=== PATIENT | female | born 1995 | race African-American/Black ===

== ENCOUNTER 2018-05-29 20:33 | Emergency (ER) | payer OTHER, SELFPAY ==
[2018-05-29] MEDS ORDERED: NA CHLORIDE 0.9% 1,000 ML ONE (21:23)
[2018-05-29] MEDS ORDERED: ONDANSETRON 4 MG/2 ML VIAL ONE (21:23)
[2018-05-29 21:37] LABS: Urine Blood NEGATIVE (NEG); Urine Glucose NEGATIVE (NEG); Urine Protein 2+ (NEG); Urine Specific Gravity 1.025 (1.005-1.030)
[2018-05-29 21:47] LABS: Urine Amorphous Sediment 2+ /HPF (NONE SEEN); Urine Bacteria 20-50 /HPF (<20); Urine Culture Reflex Order REFLEXED; Urine Mucus 2+ /HPF (NONE SEEN); Urine RBC <5 /HPF (NONE SEEN)
[2018-05-29 21:53] LABS: Absolute Lymphocytes (CBC) 2.7 K/uL (0.7-4.9); Absolute Monocytes 0.8 K/uL (0.1-1.3); Absolute Neutrophil 9.5 K/uL (1.8-8.0); Basophils % 0.2 % (0-1.3); Eosinophils % 0.4 % (0-4.4); Hematocrit 41.4 % (36.0-45.0); Lymphocytes % 20.5 % (15.3-44.8); MCH 31.7 pg (27.0-35.0); MCV 90.4 fL (80-100); MPV 9.6 fL (7.6-11.3); RBC Red Blood Cell Count 4.58 M/uL (3.86-4.86)
[2018-05-29] MEDS ORDERED: D5 0.9 NS 1,000 ML IV ONE (21:59)
[2018-05-29 22:13] LABS: ALT/SGPT 18 U/L (12-78); AST/SGOT 15 U/L (15-37); Alkaline Phosphatase 90 U/L (45-117); BUN Blood Urea Nitrogen 9 mg/dL (7-18); Bicarbonate 27 mmol/L (21-32); Bilirubin Direct 0.2 mg/dL (0-0.2); Bilirubin Total 0.5 mg/dL (0.2-1.0); Glucose Level 102 mg/dL (74-106); HCG, Quantitative 92333 mIU/mL (1-3); Lipase 125 U/L (73-393); Potassium 3.1 mmol/L (3.5-5.1); Protein, Total 8.7 g/dL (6.4-8.2); Sodium Level 134 mmol/L (136-145)
--- NOTE | 2018-05-29 22:26 | EDPHYS ---
Physician Documentation [facility] Name: Ayan Turner Age: 22 yrs Sex: Female : 1995 Arrival Date: 05/29/2018 Time: 20:34 Bed 6 Private MD: ED Physician Ramon Hill HPI: 05/29 22:22 This 22 yrs old Black Female presents to ER via Ambulatory with complaints of Vomiting, mariella Fever. 22:22 The patient presents to the emergency department with nausea, vomiting, that is mariella continuous. Onset: The symptoms/episode began/occurred 5 day(s) ago. Possible causes: . The symptoms are aggravated by nothing. The symptoms are alleviated by food . Associated signs and symptoms: The patient has no apparent associated signs or symptoms. Severity of symptoms: At their worst the symptoms were mild in the emergency department the symptoms are unchanged. 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 - Social history:: Smoking status: Patient/guardian denies using tobacco. - Ebola Screening: : No symptoms or risks identified at this time. - Family history:: not pertinent. ROS: 22:22 Constitutional: Negative for fever, chills, and weight loss, Eyes: Negative for injury, mariella pain, redness, and discharge, ENT: Negative for injury, pain, and discharge, Neck: Negative for injury, pain, and swelling, Cardiovascular: Negative for chest pain, palpitations, and edema, Respiratory: Negative for shortness of breath, cough, wheezing, and pleuritic chest pain, Back: Negative for injury and pain, : Negative for injury, bleeding, discharge, and swelling, MS/Extremity: Negative for injury and deformity, Skin: Negative for injury, rash, and discoloration, Neuro: Negative for headache, weakness, numbness, tingling, and seizure, Psych: Negative for depression, anxiety, suicide ideation, homicidal ideation, and hallucinations, Allergy/Immunology: Negative for hives, rash, and allergies, Endocrine: Negative for neck swelling, polydipsia, polyuria, polyphagia, and marked weight changes, Hematologic/Lymphatic: Negative for swollen nodes, abnormal bleeding, and unusual bruising. 22:22 Abdomen/GI: Positive for nausea and vomiting. Exam: 22:22 Constitutional: This is a well developed, well nourished patient who is awake, alert, mariella and in no acute distress. Head/Face: Normocephalic, atraumatic. Eyes: Pupils equal round and reactive to light, extra-ocular motions intact. Lids and lashes normal. Conjunctiva and sclera are non-icteric and not injected. Cornea within normal limits. Periorbital areas with no swelling, redness, or edema. ENT: Nares patent. No nasal discharge, no septal abnormalities noted. Tympanic membranes are normal and external auditory canals are clear. Oropharynx with no redness, swelling, or masses, exudates, or evidence of obstruction, uvula midline. Mucous membranes moist. Neck: Trachea midline, no thyromegaly or masses palpated, and no cervical lymphadenopathy. Supple, full range of motion without nuchal rigidity, or vertebral point tenderness. No Meningismus. Chest/axilla: Normal chest wall appearance and motion. Nontender with no deformity. No lesions are appreciated. Cardiovascular: Regular rate and rhythm with a normal S1 and S2. No gallops, murmurs, or rubs. Normal PMI, no JVD. No pulse deficits. Respiratory: Lungs have equal breath sounds bilaterally, clear to auscultation and percussion. No rales, rhonchi or wheezes noted. No increased work of breathing, no retractions or nasal flaring. Abdomen/GI: Soft, non-tender, with normal bowel sounds. No distension or tympany. No guarding or rebound. No evidence of tenderness throughout. Back: No spinal tenderness. No costovertebral tenderness. Full range of motion. Female : Normal external genitalia. Skin: Warm, dry with normal turgor. Normal color with no rashes, no lesions, and no evidence of cellulitis. MS/ Extremity: Pulses equal, no cyanosis. Neurovascular intact. Full, normal range of motion. Neuro: Awake and alert, GCS 15, oriented to person, place, time, and situation. Cranial nerves II-XII grossly intact. Motor strength 5/5 in all extremities. Sensory grossly intact. Cerebellar exam normal. Normal gait. Psych: Awake, alert, with orientation to person, place and time. Behavior, mood, and affect are within normal limits. Vital Signs: 20:40 BP 143 / 91; Pulse 115; Resp 16; Temp 98.4(TE); Pulse Ox 100% on R/A; Weight 70.31 kg; la1 Height 5 ft. 3 in. (160.02 cm); 21:37 Pulse 94; Resp 16; Pulse Ox 100% on R/A; ak1 22:20 BP 103 / 92 LA Supine (auto/); Pulse 94; Resp 16; Pulse Ox 100% on R/A; ak1 22:25 BP 119 / 72 LA Sitting (auto/reg); Pulse 100; Resp 16; Pulse Ox 100% on R/A; ak1 22:30 BP 118 / 76 LA Standing (auto/reg); Pulse 102; Resp 16; Pulse Ox 100% ; ak1 20:40 Body Mass Index 27.46 (70.31 kg, 160.02 cm) la1 MDM: 21:10 Patient medically screened. 05/29 21:15 Order name: Basic Metabolic Panel; Complete Time: 22:16 05/29 21:15 Order name: CBC with Diff; Complete Time: 22:16 05/29 21:15 Order name: Creatinine for Radiology; Complete Time: 22:16 05/29 21:15 Order name: Hepatic Function; Complete Time: 22:16 05/29 21:15 Order name: Lipase; Complete Time: 22:16 05/29 21:15 Order name: Urine Microscopic Only; Complete Time: 22:16 05/29 21:15 Order name: HCG-Quantitative; Complete Time: 22:16 05/29 21:15 Order name: TSH; Complete Time: 22:16 05/29 21:34 Order name: Urine Dipstick--Ancillary (enter results); Complete Time: 21:43 mw2 05/29 21:49 Order name: Urine Culture EDMS 05/29 21:15 Order name: IV Saline Lock; Complete Time: 21:35 05/29 21:15 Order name: Labs collected and sent; Complete Time: 21:35 05/29 21:15 Order name: Urine Dipstick-Ancillary (obtain specimen); Complete Time: 21:35 05/29 22:17 Order name: PO challenge: juice; Complete Time: 22:29 mariella Administered Medications: 21:34 Drug: Zofran 4 mg Route: IVP; Site: right antecubital; ak1 21:38 Follow up: Response: No adverse reaction ak1 21:35 Drug: NS 0.9% 1000 ml Route: IV; Rate: 1 bolus; Site: right antecubital; ak1 22:00 Follow up: IV Status: Completed infusion ak1 22:00 Drug: D5-NS 1000 ml Route: IV; Rate: 1 bolus; Site: right antecubital; ak1 22:29 Follow up: IV Status: Completed infusion ak1 22:29 Drug: Potassium Effervescent Tablet 25 mEq Route: PO; ak1 22:30 Follow up: Response: No adverse reaction ak1 22:30 CANCELLED (ERP verbal order to cancel after orthostatics ): NS 0.9% 1000 ml IV at 1 ak1 bolus Per protocol; 1000 mL bolus Disposition: 05/29/18 22:25 Discharged to Home. Impression: Vomiting, related conditions, unspecified, first trimester. - Condition is Stable. - Discharge Instructions: Hyperemesis Gravidarum, Nausea and Vomiting, Adult, Eating Plan for Hyperemesis Gravidarum, First Trimester of , [id number], Nausea and Vomiting, Adult, [id number], First Trimester of . - Prescriptions for Diclegis 10- 10 mg Oral tablet,delayed release (DR/EC) - take 1 tablet by ORAL route 3 times per day and 2 tablets at bedtime; 60 tablet. - Medication Reconciliation Form, Thank You Letter, Antibiotic Education, Prescription Opioid Use form. - Follow up: Private Physician; When: 2 - 3 days; Reason: Recheck today's complaints, Continuance of care, Re-evaluation by your physician. Follow up: Franchesca Ng MD; When: 2 - 3 days; Reason: Recheck today's complaints, Re-evaluation by your physician. - Problem is new. - Symptoms have improved. Signatures: Dispatcher [employer] Ramon Gresham MD MD cha Attema, Lee, RN RN [email or web address] Jamilah Rosa RN RN ak1 Will Costa MD MD gs Corrections: (The following items were deleted from the chart) 22:30 22:18 NS 0.9% 1000 ml IV at 1 bolus Per protocol; 1000 mL bolus ordered. mariella marino 22:54 22:25 05/29/2018 22:25 Discharged to Home. Impression: Vomiting; related ak1 conditions, unspecified, first trimester. Condition is Stable. Forms are Medication Reconciliation Form, Thank You Letter, Antibiotic Education, Prescription Opioid Use. Follow up: Private Physician; When: 2 - 3 days; Reason: Recheck today's complaints, Continuance of care, Re-evaluation by your physician. Follow up: Mini Rekhi; When: 2 - 3 days; Reason: Recheck today's complaints, Re-evaluation by your physician. Problem is new. Symptoms have improved. mariella
--- NOTE | 2018-05-29 22:26 | ER ---
Nurse's Notes [facility] Name: Ayan Turner Age: 22 yrs Sex: Female : 1995 Arrival Date: 05/29/2018 Time: 20:34 Bed 6 Private MD: Diagnosis: Vomiting; related conditions, unspecified, first trimester Presentation: 05/29 20:39 Presenting complaint: Patient states: I have been vomiting for the last 10 days, I cant la1 keep anything down except for crackers. Pt states LMP April 07 but has not taken test, pt denies pain. Transition of care: patient was not received from another setting of care. Onset of symptoms was May 29, 2018. Risk Assessment: Do you want to hurt yourself or someone else? Patient reports no desire to harm self or others. Initial Sepsis Screen: Does the patient meet any 2 criteria? No. Patient's initial sepsis screen is negative. Does the patient have a suspected source of infection? No. Patient's initial sepsis screen is negative. Care prior to arrival: None. 20:39 Method Of Arrival: Ambulatory la1 20:39 Acuity: MOSES 3 la1 Triage Assessment: 20:48 General: Appears in no apparent distress. Behavior is calm, cooperative. Pain: Denies ak1 pain. EENT: No signs and/or symptoms were reported regarding the EENT system. Neuro: No deficits noted. Cardiovascular: No deficits noted. Respiratory: No deficits noted. GI: Reports nausea, vomiting. : No signs and/or symptoms were reported regarding the genitourinary system. Derm: No signs and/or symptoms reported regarding the dermatologic system. Musculoskeletal: No signs and/or symptoms reported regarding the musculoskeletal system. 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 - Social history:: Smoking status: Patient/guardian denies using tobacco. - Ebola Screening: : No symptoms or risks identified at this time. - Family history:: not pertinent. Screenin:48 Abuse screen: Denies threats or abuse. Denies injuries from another. Nutritional ak1 screening: No deficits noted. Tuberculosis screening: No symptoms or risk factors identified. Fall Risk None identified. Assessment: 21:36 Reassessment: Patient appears in no apparent distress at this time. No changes from ak1 previously documented assessment. see triage assessment. GI: Abdomen is flat, non-distended, Reports nausea, vomiting, every morning X10 days. 22:32 Reassessment: Patient appears in no apparent distress at this time. Patient and/or ak1 family updated on plan of care and expected duration. Pain level reassessed. Patient is alert, oriented x 3, equal unlabored respirations, skin warm/dry/pink. pt eating shrimp and rice brought from home. pt tolerating food and the potassium with no vomiting while in the ER. Vital Signs: 20:40 BP 143 / 91; Pulse 115; Resp 16; Temp 98.4(TE); Pulse Ox 100% on R/A; Weight 70.31 kg; la1 Height 5 ft. 3 in. (160.02 cm); 21:37 Pulse 94; Resp 16; Pulse Ox 100% on R/A; ak1 22:20 BP 103 / 92 LA Supine (auto/); Pulse 94; Resp 16; Pulse Ox 100% on R/A; ak1 22:25 BP 119 / 72 LA Sitting (auto/reg); Pulse 100; Resp 16; Pulse Ox 100% on R/A; ak1 22:30 BP 118 / 76 LA Standing (auto/reg); Pulse 102; Resp 16; Pulse Ox 100% ; ak1 20:40 Body Mass Index 27.46 (70.31 kg, 160.02 cm) la1 Vitals: 22:41 Heart Tones 145 bpm. ak1 ED Course: 20:34 Patient arrived in ED. es 20:40 Triage completed. la1 20:41 Arm band placed on right wrist. la1 20:47 Will Costa MD is Attending Physician. gs 20:48 Jamilah Rosa, RN is Primary Nurse. ak1 20:50 Patient has correct armband on for positive identification. ak1 21:35 Urine Dipstick--Ancillary (enter results) Sent. ak1 21:35 No provider procedures requiring assistance completed. Initial lab(s) drawn, by dc, ak1 sent to lab. Urine collected: clean catch specimen, tea colored. Inserted saline lock: 20 gauge in right antecubital area, using aseptic technique. Blood collected. 21:51 Attending Physician role handed off by Will Costa MD [facility] 21:51 Ramon Hill MD is Attending Physician. mariella 21:53 Urine Culture Sent. ak1 22:25 Franchesca Ng MD is Referral Physician. mariella 22:30 IV discontinued, intact, bleeding controlled, No redness/swelling at site. Pressure ak1 dressing applied. Administered Medications: 21:34 Drug: Zofran 4 mg Route: IVP; Site: right antecubital; ak1 21:38 Follow up: Response: No adverse reaction ak1 21:35 Drug: NS 0.9% 1000 ml Route: IV; Rate: 1 bolus; Site: right antecubital; ak1 22:00 Follow up: IV Status: Completed infusion ak1 22:00 Drug: D5-NS 1000 ml Route: IV; Rate: 1 bolus; Site: right antecubital; ak1 22:29 Follow up: IV Status: Completed infusion ak1 22:29 Drug: Potassium Effervescent Tablet 25 mEq Route: PO; ak1 22:30 Follow up: Response: No adverse reaction ak1 22:30 CANCELLED (ERP verbal order to cancel after orthostatics ): NS 0.9% 1000 ml IV at 1 ak1 bolus Per protocol; 1000 mL bolus Outcome: 22:25 Discharge ordered by . mariella 22:32 Condition: stable ak1 22:42 Discharged to home ambulatory, with family. ak1 22:42 Discharge instructions given to patient, Instructed on discharge instructions, follow up and referral plans. no drinking with medication, no driving heavy equipment, medication usage, Demonstrated understanding of instructions, follow-up care, medications, Prescriptions given X 1. 22:54 Patient left the ED. ak1 Signatures: Ramon Hill MD MD cha Salyer, Edna es Attema, Lee RN RN la1 Jamilah Rosa RN RN ak1 Will Costa MD MD
[2018-05-29] MEDS ORDERED: POTASSIUM 25 MEQ EFFERV TAB ONE (22:27)
== END 2018-05-29 22:54 | disposition home or self-care (01) ==
LOC: ER 20:33
DX: O21.9 Vomiting of pregnancy, unspecified (principal); Z3A.00 Weeks of gestation of pregnancy not specified
CPT/HCPCS: 36415; 80048; 80076; 81003; 81015; 83690; 84443; 84702; 85025; 87086; 87088; 96361; 96374; 99284; J2405; J7030

== ENCOUNTER 2018-06-16 16:43 | Emergency (ER) | payer OTHER, SELFPAY ==
[2018-06-16 18:57] LABS: Absolute Lymphocytes (CBC) 1.9 K/uL (0.7-4.9); Absolute Monocytes 0.9 K/uL (0.1-1.3); Absolute Neutrophil 15.7 K/uL (1.8-8.0); Basophils % 0.2 % (0-1.3); Hematocrit 41.4 % (36.0-45.0); Lymphocytes % 10.2 % (15.3-44.8); MCH 30.9 pg (27.0-35.0); MCV 89.4 fL (80-100); Monocytes % 4.7 % (3.3-12.3); RBC Red Blood Cell Count 4.62 M/uL (3.86-4.86)
[2018-06-16] MEDS ORDERED: NA CHLORIDE 0.9% 1,000 ML ONE ×2 (18:58→20:24)
[2018-06-16 19:02] LABS: Urine Blood NEGATIVE (NEG); Urine Glucose NEGATIVE (NEG); Urine Protein 2+ (NEG); Urine Specific Gravity 1.025 (1.005-1.030)
[2018-06-16] MEDS ORDERED: PROMETHAZINE 25 MG/ML VIAL ONE ×2 (19:07→20:24)
[2018-06-16 19:15] LABS: Urine Amorphous Sediment 1+ /HPF (NONE SEEN); Urine Bacteria 20-50 /HPF (<20); Urine Culture Reflex Order NOT NEEDED; Urine Mucus 2+ /HPF (NONE SEEN); Urine RBC <5 /HPF (NONE SEEN)
[2018-06-16] MEDS ORDERED: CEFTRIAXONE/SWI 1gm 1 GM/10 ML SYR ONE (19:39)
[2018-06-16 20:18] LABS: BUN Blood Urea Nitrogen 19 mg/dL (7-18); Bicarbonate 24 mmol/L (21-32); Glucose Level 125 mg/dL (74-106); HCG, Quantitative 96433 mIU/mL (1-3); Potassium 3.2 mmol/L (3.5-5.1); Sodium Level 138 mmol/L (136-145)
[2018-06-16] MEDS ORDERED: POTASSIUM CL SA 10 MEQ TAB PO ONE (20:41)
--- NOTE | 2018-06-16 21:39 | ER ---
Nurse's Notes [facility] Name: Ayan Turner Age: 22 yrs Sex: Female : 1995 Arrival Date: 06/16/2018 Time: 16:45 Bed 24 Private MD: None, None Diagnosis: Dehydration; related conditions, unspecified;Vomiting, unspecified;Urinary tract infection, site not specified Presentation: 06/16 16:54 Presenting complaint: Patient states: vomiting since Tuesday. Pt reports being about sv 9-10 weeks . Transition of care: patient was not received from another setting of care. Onset of symptoms was June 11, 2018. Care prior to arrival: None. 16:54 Method Of Arrival: Ambulatory sv 16:54 Acuity: MOSES 3 sv 18:59 Risk Assessment: Do you want to hurt yourself or someone else? Patient reports no mg2 desire to harm self or others. Initial Sepsis Screen: Does the patient meet any 2 criteria? No. Patient's initial sepsis screen is negative. Does the patient have a suspected source of infection? No. Patient's initial sepsis screen is negative. Historical: - Allergies: 16:55 No Known Allergies; sv - Home Meds: 16:55 Vitamin Oral [Active]; sv - PMHx: 16:55 None; sv - PSHx: 16:55 None; sv - Immunization history:: Adult Immunizations up to date. - Social history:: Smoking status: Patient/guardian denies using tobacco, Patient/guardian denies using alcohol. - Ebola Screening: : No symptoms or risks identified at this time. Screenin:57 Abuse screen: Denies threats or abuse. Denies injuries from another. Nutritional mg2 screening: No deficits noted. Tuberculosis screening: No symptoms or risk factors identified. Fall Risk Assessment: 18:57 General: Appears in no apparent distress. comfortable, Behavior is calm, cooperative. mg2 Pain: Denies pain. Neuro: Level of Consciousness is awake, alert, obeys commands, Oriented to person, place, time. Cardiovascular: Capillary refill < 3 seconds Patient's skin is warm and dry. Respiratory: Airway is patent Respiratory effort is even, unlabored, Respiratory pattern is regular, symmetrical. GI: Abdomen is flat, Reports nausea, vomiting. : Urine is tea colored. EENT: No signs and/or symptoms were reported regarding the EENT system. Derm: Skin is intact, Skin is pink, warm \T\ dry. normal. Musculoskeletal: Circulation, motion, and sensation intact. 20:24 Reassessment: Patient appears in no apparent distress at this time. Patient and/or mg2 family updated on plan of care and expected duration. Pain level reassessed. Patient is alert, oriented x 3, equal unlabored respirations, skin warm/dry/pink. 21:55 Reassessment: Patient appears in no apparent distress at this time. Patient and/or mg2 family updated on plan of care and expected duration. Pain level reassessed. Patient is alert, oriented x 3, equal unlabored respirations, skin warm/dry/pink. Vital Signs: 16:55 BP 128 / 94; Pulse 125; Resp 18; Temp 97.8; Pulse Ox 98% ; Weight 68.04 kg; Height 5 sv ft. 3 in. (160.02 cm); Pain 0/10; 18:54 BP 131 / 89 LA Supine (auto/reg); Pulse 105; Resp 18 S; Temp 99.2(O); Pulse Ox 100% on jp3 R/A; Pain 5/10; 19:30 BP 105 / 66 LA Supine (auto/reg); Pulse 99; Resp 18 S; Pulse Ox 100% on R/A; Pain 5/10; jp3 20:46 BP 120 / 81; Pulse 99; Resp 18; Pulse Ox 100% ; Pain 0/10; mg2 21:56 BP 122 / 74; Pulse 78; Resp 18; Pulse Ox 100% on R/A; Pain 0/10; mg2 16:55 Body Mass Index 26.57 (68.04 kg, 160.02 cm) sv ED Course: 16:45 Patient arrived in ED. sb2 16:45 None, None is Private Physician. sb2 16:55 Nicole Forte [facility]-C [facility]. snw 16:55 Fausto Marie MD is Attending Physician. snw 16:55 Triage completed. sv 16:57 Arm band placed on right wrist. sv 16:57 Patient placed in waiting room, Patient notified of wait time. sv 18:25 Patient taken to an exam room, ambulatory, steady gait. sv 18:30 Diet: Patient is NPO. jp3 18:32 Bart Quevedo, RN is Primary Nurse. mg2 18:35 Initial lab(s) drawn, by me, sent to lab. Urine collected: clean catch specimen, clear, jp3 harlan colored. 18:45 Inserted saline lock: 22 gauge in right forearm, using aseptic technique. Blood jp3 collected. 18:51 Bed in low position. Call light in reach. Side rails up X 1. Warm blanket given. Pillow jp3 given. Pulse ox on. NIBP on. 18:52 Quantitative Hcg Sent. jp3 18:52 Abo/rh Typing Sent. jp3 18:52 Basic Metabolic Panel Sent. jp3 18:52 CBC with Diff Sent. jp3 18:53 Urine Culture Sent. jp3 18:53 Urine Microscopic Only Sent. jp3 18:58 Side rails up X2. Lights dimmed. jp3 18:59 No provider procedures requiring assistance completed. mg2 19:12 Urine Culture Sent. jp3 19:12 Urine Microscopic Only Sent. jp3 21:55 IV discontinued, intact, bleeding controlled, No redness/swelling at site. Pressure mg2 dressing applied. Administered Medications: 18:57 Drug: NS 0.9% 1000 ml Route: IV; Rate: 1 bolus; Site: right forearm; mg2 20:45 Follow up: Response: No adverse reaction; IV Status: Completed infusion mg2 19:06 Drug: Phenergan 6.25 mg Route: IVP; Site: right forearm; mg2 20:45 Follow up: Response: No adverse reaction; Marked relief of symptoms mg2 19:40 Drug: Rocephin - (cefTRIAXone) 1 grams Route: IVPB; Infused Over: 30 mins; Site: right mg2 forearm; 20:45 Follow up: Response: No adverse reaction; IV Status: Completed infusion mg2 20:24 Drug: NS 0.9% 1000 ml Route: IV; Rate: 1 bolus; Site: right forearm; mg2 21:54 Follow up: Response: No adverse reaction; IV Status: Completed infusion mg2 20:24 Drug: Phenergan 6.25 mg Route: IVP; Site: right forearm; mg2 20:45 Follow up: Response: No adverse reaction; Marked relief of symptoms mg2 21:54 Follow up: Response: No adverse reaction; Marked relief of symptoms mg2 20:44 Drug: Potassium Chloride 40 mEq Route: PO; mg2 20:45 Follow up: Response: No adverse reaction mg2 21:54 Follow up: Response: No adverse reaction mg2 Outcome: 21:38 Discharge ordered by MD. baker 21:55 Discharged to home ambulatory, with family. mg2 21:55 Condition: stable 21:55 Discharge instructions given to patient, family, Instructed on discharge instructions, follow up and referral plans. medication usage, Demonstrated understanding of instructions, follow-up care, medications, Prescriptions given X 3. 21:56 Patient left the ED. mg2 Signatures: Jes Maki, BO RN sv Nicole Forte, NATURAL GAS INSPECTOR-C NATURAL GAS INSPECTOR-Csnw Angelina Pardo sb2 Bart Quevedo, BO RN mg2 Bruno Corcoran jp3
--- NOTE | 2018-06-16 21:39 | EDPHYS ---
Physician Documentation [facility] Name: Ayan Turner Age: 22 yrs Sex: Female : 1995 Arrival Date: 06/16/2018 Time: 16:45 Bed 24 Private MD: None, None ED Physician Fausto Marie HPI: 06/16 18:50 This 22 yrs old Black Female presents to ER via Ambulatory with complaints of snw Nausea/Vomiting. 18:50 The patient presents to the emergency department with nausea, vomiting. Onset: The snw symptoms/episode began/occurred suddenly, 9 day(s) ago, and became worse 3 day(s) ago, and became persistent. Possible causes: . Associated signs and symptoms: The patient has no apparent associated signs or symptoms. Severity of symptoms: At their worst the symptoms were moderate severe. The patient has not experienced similar symptoms in the past. The patient has not recently seen a physician. Historical: - Allergies: 16:55 No Known Allergies; sv - Home Meds: 16:55 Vitamin Oral [Active]; sv - PMHx: 16:55 None; sv - PSHx: 16:55 None; sv - Immunization history:: Adult Immunizations up to date. - Social history:: Smoking status: Patient/guardian denies using tobacco, Patient/guardian denies using alcohol. - Ebola Screening: : No symptoms or risks identified at this time. ROS: 18:48 Constitutional: Negative for fever, chills, and weight loss, Eyes: Negative for injury, snw pain, redness, and discharge, ENT: Negative for injury, pain, and discharge, Neck: Negative for injury, pain, and swelling, Cardiovascular: Negative for chest pain, palpitations, and edema, Respiratory: Negative for shortness of breath, cough, wheezing, and pleuritic chest pain, Back: Negative for injury and pain, : Negative for injury, bleeding, discharge, and swelling, MS/Extremity: Negative for injury and deformity, Skin: Negative for injury, rash, and discoloration, Neuro: Negative for headache, weakness, numbness, tingling, and seizure. 18:48 Abdomen/GI: Positive for nausea and vomiting, , last menstrual cycle 03/2018, no PCP/OB yet. G1, Negative for abdominal pain, diarrhea. Exam: 18:47 Constitutional: This is a well developed, well nourished patient who is awake, alert, snw and in no acute distress. Head/Face: Normocephalic, atraumatic. Eyes: Pupils equal round and reactive to light, extra-ocular motions intact. Lids and lashes normal. Conjunctiva and sclera are non-icteric and not injected. Cornea within normal limits. Periorbital areas with no swelling, redness, or edema. 18:47 Neck: Trachea midline, no thyromegaly or masses palpated, and no cervical lymphadenopathy. Supple, full range of motion without nuchal rigidity, or vertebral point tenderness. No Meningismus. Chest/axilla: Normal chest wall appearance and motion. Nontender with no deformity. No lesions are appreciated. 18:47 Respiratory: Lungs have equal breath sounds bilaterally, clear to auscultation and percussion. No rales, rhonchi or wheezes noted. No increased work of breathing, no retractions or nasal flaring. Abdomen/GI: Soft, non-tender, with normal bowel sounds. No distension or tympany. No guarding or rebound. No evidence of tenderness throughout. Back: No spinal tenderness. No costovertebral tenderness. Full range of motion. Skin: Warm, dry with normal turgor. Normal color with no rashes, no lesions, and no evidence of cellulitis. MS/ Extremity: Pulses equal, no cyanosis. Neurovascular intact. Full, normal range of motion. Neuro: Awake and alert, GCS 15, oriented to person, place, time, and situation. Cranial nerves II-XII grossly intact. Motor strength 5/5 in all extremities. Sensory grossly intact. Cerebellar exam normal. Normal gait. 18:47 ENT: Mouth: Lips: normal, Oral mucosa: dry, Voice: is normal. 18:47 Cardiovascular: Rate: tachycardic, Rhythm: regular, Pulses: no pulse deficits are appreciated. Vital Signs: 16:55 BP 128 / 94; Pulse 125; Resp 18; Temp 97.8; Pulse Ox 98% ; Weight 68.04 kg; Height 5 sv ft. 3 in. (160.02 cm); Pain 0/10; 18:54 BP 131 / 89 LA Supine (auto/reg); Pulse 105; Resp 18 S; Temp 99.2(O); Pulse Ox 100% on jp3 R/A; Pain 5/10; 19:30 BP 105 / 66 LA Supine (auto/reg); Pulse 99; Resp 18 S; Pulse Ox 100% on R/A; Pain 5/10; jp3 20:46 BP 120 / 81; Pulse 99; Resp 18; Pulse Ox 100% ; Pain 0/10; mg2 21:56 BP 122 / 74; Pulse 78; Resp 18; Pulse Ox 100% on R/A; Pain 0/10; mg2 16:55 Body Mass Index 26.57 (68.04 kg, 160.02 cm) sv MDM: 18:36 Patient medically screened. snw 21:38 Data reviewed: vital signs, nurses notes. Data interpreted: Pulse oximetry: on room air snw is 100 %. Interpretation: normal. Counseling: I had a detailed discussion with the patient and/or guardian regarding: the historical points, exam findings, and any diagnostic results supporting the discharge/admit diagnosis, lab results, radiology results, the need for outpatient follow up, to return to the emergency department if symptoms worsen or persist or if there are any questions or concerns that arise at home. Special discussion: Based on the history and exam findings, there is no indication for further emergent testing or inpatient evaluation. I discussed with the patient/guardian the need to see the OB Gyne specialist for further evaluation of the symptoms. I discussed with the patient/guardian the need to see the primary care provider for further evaluation of the symptoms. 06/16 16:55 Order name: Urine Culture formerly [facility] 06/16 16:55 Order name: Urine Microscopic Only; Complete Time: 19:21 formerly [facility] 06/16 16:58 Order name: Quantitative Hcg; Complete Time: 20:21 w 06/16 16:58 Order name: Abo/rh Typing; Complete Time: 19:56 w 06/16 16:58 Order name: Basic Metabolic Panel; Complete Time: 20:21 w 06/16 16:58 Order name: CBC with Diff; Complete Time: 19:01 w 06/16 18:53 Order name: Urine Dipstick--Ancillary (enter results); Complete Time: 19:07 4 06/16 18:53 Order name: Urine --Ancillary (enter results); Complete Time: 19:07 [facility] 06/16 16:55 Order name: Urine Test (obtain specimen); Complete Time: 18:53 snw 06/16 16:55 Order name: Urine Dipstick-Ancillary (obtain specimen); Complete Time: 18:53 snw 06/16 16:58 Order name: IV Saline Lock; Complete Time: 18:52 snw 06/16 16:58 Order name: Labs collected and sent; Complete Time: 18:52 snw 06/16 16:58 Order name: NPO; Complete Time: 18:57 snw 06/16 20:22 Order name: PO challenge; Complete Time: 20:44 snw Administered Medications: 18:57 Drug: NS 0.9% 1000 ml Route: IV; Rate: 1 bolus; Site: right forearm; mg2 20:45 Follow up: Response: No adverse reaction; IV Status: Completed infusion mg2 19:06 Drug: Phenergan 6.25 mg Route: IVP; Site: right forearm; mg2 20:45 Follow up: Response: No adverse reaction; Marked relief of symptoms mg2 19:40 Drug: Rocephin - (cefTRIAXone) 1 grams Route: IVPB; Infused Over: 30 mins; Site: right mg2 forearm; 20:45 Follow up: Response: No adverse reaction; IV Status: Completed infusion mg2 20:24 Drug: NS 0.9% 1000 ml Route: IV; Rate: 1 bolus; Site: right forearm; mg2 21:54 Follow up: Response: No adverse reaction; IV Status: Completed infusion mg2 20:24 Drug: Phenergan 6.25 mg Route: IVP; Site: right forearm; mg2 20:45 Follow up: Response: No adverse reaction; Marked relief of symptoms mg2 21:54 Follow up: Response: No adverse reaction; Marked relief of symptoms mg2 20:44 Drug: Potassium Chloride 40 mEq Route: PO; mg2 20:45 Follow up: Response: No adverse reaction mg2 21:54 Follow up: Response: No adverse reaction mg2 Disposition: 06/17 08:36 Co-signature as Attending Physician, Fausto Marie MD I agree with the assessment and wa plan of care. Disposition: 06/16/18 21:38 Discharged to Home. Impression: Dehydration, related conditions, unspecified, Vomiting, unspecified, Urinary tract infection, site not specified. - Condition is Stable. - Discharge Instructions: Hyperemesis Gravidarum, Eating Plan for Hyperemesis Gravidarum, and Urinary Tract Infection, Rehydration, Adult. - Prescriptions for Diclegis 10- 10 mg Oral tablet,delayed release (DR/EC) - take 1 tablet by ORAL route as directed and 2 tablets at bedtime; 30 tablet. Augmentin 875- 125 mg Oral Tablet - take 1 tablet by ORAL route every 12 hours for 10 days; 20 tablet. Phenergan 25 mg Rectal Suppository - insert 1 suppository by RECTAL route every 6 hours As needed; 12 suppository. - Work release form, Medication Reconciliation Form, Thank You Letter, Antibiotic Education, Prescription Opioid Use form. - Follow up: Private Physician; When: 2 - 3 days; Reason: Recheck today's complaints, Continuance of care, Re-evaluation by your physician. Follow up: Emergency Department; When: As needed; Reason: Worsening of condition. Signatures: Dispatcher [employer] Jes Avalos RN RN Nicole Kaminski, CREATIVE/ART DIRECTOR-C CREATIVE/ART DIRECTOR-Csnw Fausto Marie MD MD wa Gardose, Michele, RN RN mg2 Corrections: (The following items were deleted from the chart) 06/16 21:56 21:38 06/16/2018 21:38 Discharged to Home. Impression: Dehydration; related mg2 conditions, unspecified; Vomiting, unspecified; Urinary tract infection, site not specified. Condition is Stable. Discharge Instructions: Hyperemesis Gravidarum, Eating Plan for Hyperemesis Gravidarum, and Urinary Tract Infection, Rehydration, Adult. Prescriptions for Diclegis 10-10 mg Oral tablet,delayed release (DR/EC) - take 1 tablet by ORAL route as directed and 2 tablets at bedtime; 30 tablet, Augmentin 875-125 mg Oral Tablet - take 1 tablet by ORAL route every 12 hours for 10 days; 20 tablet, Phenergan 25 mg Rectal Suppository - insert 1 suppository by RECTAL route every 6 hours As needed; 12 suppository. and Forms are Work release form, Medication Reconciliation Form, Thank You Letter, Antibiotic Education, Prescription Opioid Use. Follow up: Private Physician; When: 2 - 3 days; Reason: Recheck today's complaints, Continuance of care, Re-evaluation by your physician. Follow up: Emergency Department; When: As needed; Reason: Worsening of condition. snw
== END 2018-06-16 21:56 | disposition home or self-care (01) ==
LOC: ER 16:43
DX: O21.1 Hyperemesis gravidarum with metabolic disturbance (principal); Z3A.10 10 weeks gestation of pregnancy; O23.41 Unspecified infection of urinary tract in pregnancy, first trimester
CPT/HCPCS: 36415; 80048; 81003; 81015; 81025; 84702; 85025; 86900; 86901; 87086; 87088; 96361; 96365; 96375; 99284; J0696; J2550; J7030

== ENCOUNTER 2020-03-24 17:02 | Emergency (ER) | payer OTHER, SELFPAY ==
--- OUTSIDE RECORDS SUMMARY | 2020-03-24 18:59 | XMS REPORT | Continuity of Care Document ---
:1995 Author Organization [facility] t Address [address] [place] [address] Care Team Providers Name Role Phone Doctor Unassigned, Name Attending Clinician Unavailable Felipe SHERMAN, Pawel Attending Clinician Problems This patient has no known problems. Allergies, Adverse Reactions, Alerts This patient has no known allergies or adverse reactions. Medications This patient has no known medications. Procedures This patient has no known procedures. Encounters Start End Encounter Admission Attending Care Care Encounter Source Date/Time Date/Time Type Type Clinicians Facility Department ID 2019-07-05 2019-07-05 Orders Doctor JARRED [id number] 00:00:00 00:00:00 Only Unassigned, RAFAEL [id number] [place] [id number] 2019-07-03 2019-07-03 Refill Bernadette Wang [id number] 00:00:00 00:00:00 Pawel [place] [id number] [place] [id number] [facility] [id number] [address] 2019-05-07 2019-05-07 Patient Doctor JARRED [id number] 00:00:00 00:00:00 Secure Msg Unassigned, RAFAEL [id number] [place] [facility] [id number] Results This patient has no known results.
[2020-03-24 20:14] LABS: Urine Blood NEGATIVE (NEG); Urine Glucose NEGATIVE (NEG); Urine Protein NEGATIVE (NEG); Urine Specific Gravity >1.030 (1.005-1.030); Urine pH 6.5 (5.0-7.0)
--- NOTE | 2020-03-24 20:26 | EDPHYS ---
Physician Documentation [facility] Name: Ayan Turner Age: 24 yrs Sex: Female : 1995 Arrival Date: 03/24/2020 Time: 17:07 Bed 26 Private MD: ED Physician Samy Wang HPI: 03/24 19:30 This 24 yrs old Black Female presents to ER via Ambulatory with complaints of Nausea, cp Fatigue. 19:30 The patient presents to the emergency department with nausea, that is mild. cp 19:30 Onset: The symptoms/episode began/occurred 5 day(s) ago. Possible causes: . cp 19:30 Associated signs and symptoms: Pertinent negatives: abdominal pain, diarrhea, dysuria, cp fever, vaginal discharge, vomiting, vaginal bleeding. Severity of symptoms: in the emergency department the symptoms are unchanged despite home interventions. with previous . 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 - Social history:: Smoking status: Patient denies any tobacco usage or history of. Patient/guardian denies using alcohol, street drugs, tobacco products. ROS: 19:35 Abdomen/GI: Positive for nausea, Negative for abdominal pain, vomiting, diarrhea, cp constipation. 19:35 Eyes: Negative for injury, pain, redness, and discharge. cp 19:35 Constitutional: Positive for fatigue, Negative for body aches, chills, fever. 19:35 ENT: Negative for ear pain, sore throat, difficulty swallowing, difficulty handling secretions. 19:35 Cardiovascular: Negative for chest pain, palpitations. 19:35 Respiratory: Negative for cough, shortness of breath, wheezing. 19:35 : Negative for urinary symptoms, pelvic pain, flank pain, vaginal bleeding, vaginal discharge. 19:35 Skin: Negative for rash. 19:35 Neuro: Negative for headache, weakness. 19:35 All other systems are negative. Exam: 19:40 Constitutional: The patient appears in no acute distress, alert, awake, comfortable, cp non-toxic, well developed, well nourished. 19:40 Head/Face: Normocephalic, atraumatic. cp 19:40 Chest/axilla: Inspection: normal. 19:40 Cardiovascular: Rate: normal. 19:40 Respiratory: the patient does not display signs of respiratory distress, Respirations: normal, no retractions, labored breathing, is not present. 19:40 Abdomen/GI: Exam negative for discomfort, distension, guarding, Inspection: abdomen appears normal. Vital Signs: 17:23 BP 134 / 89; Pulse 90; Resp 17; Temp 98.0; Pulse Ox 99% ; Pain 0/10; ll1 20:00 BP 130 / 78; Pulse 80; Resp 18; Temp 98(O); Pulse Ox 100% ; mg2 MDM: 19:31 Patient medically screened. 20:00 Data reviewed: vital signs, nurses notes, lab test result(s), UPT: positive and as a cp result, I will discharge patient. 20:00 Counseling: I had a detailed discussion with the patient and/or guardian regarding: the cp historical points, exam findings, and any diagnostic results supporting the discharge/admit diagnosis, lab results, the need for outpatient follow up, for definitive care, an OB/Gyne specialist, to return to the emergency department if symptoms worsen or persist or if there are any questions or concerns that arise at home. 03/24 19:54 Order name: Urine Dipstick--Ancillary (enter results); Complete Time: 20:24 ks 03/24 19:54 Order name: Urine --Ancillary (enter results); Complete Time: 20:24 ks 03/24 20:24 Interpretation: Reviewed. 03/24 19:24 Order name: Urine Dipstick-Ancillary (obtain specimen); Complete Time: 19:54 03/24 19:24 Order name: Urine Test (obtain specimen); Complete Time: 19:54 Administered Medications: No medications were administered Disposition: 03/25 05:26 Co-signature as Attending Physician, Samy Wang MD. pkl Disposition: 03/24/20 20:03 Discharged to Home. Impression: Encounter for test, result positive. - Condition is Stable. - Discharge Instructions: First Trimester of . - Prescriptions for Vitamin 27- 0.8 mg Oral Tablet - take 1 tablet by ORAL route once daily; 60 tablet. - Medication Reconciliation Form, Thank You Letter, Antibiotic Education, Prescription Opioid Use form. - Follow up: Private Physician; When: 2 - 3 days; Reason: Recheck today's complaints. - Problem is new. - Symptoms have improved. Signatures: Dispatcher [employer] EDMS Samy Wang MD MD pkRamon Ryan PA PA cp Bart Quevedo RN RN mg2 Jose Damian RN RN ll1 Corrections: (The following items were deleted from the chart) 03/24 20:29 20:03 03/24/2020 20:03 Discharged to Home. Impression: Encounter for test, mg2 result positive. Condition is Stable. Forms are Medication Reconciliation Form, Thank You Letter, Antibiotic Education, Prescription Opioid Use. Follow up: Private Physician; When: 2 - 3 days; Reason: Recheck today's complaints. Problem is new. Symptoms have improved. cp
--- NOTE | 2020-03-24 20:26 | ER ---
Nurse's Notes [facility] Name: Ayan Turner Age: 24 yrs Sex: Female : 1995 Arrival Date: 03/24/2020 Time: 17:07 Bed 26 Private MD: Diagnosis: Encounter for test, result positive Presentation: 03/24 17:23 Chief complaint: Patient states: N/V with fatigue for 5 days. States she thinks she ll1 might be . G1, P1. Coronavirus screen: Proceed with normal triage. Patient denies a cough. Patient denies shortness of breath or difficulty breathing. Patient denies measured and/or subjective temperature greater than 100.4F prior to today's visit. Patient denies travel on a cruise ship or to a country the [facility] currently lists as an affected area. Patient denies contact with known and/or suspected case of COVID-19. Ebola Screen: Patient denies travel to an Ebola-affected area in the 21 days before illness onset. Initial Sepsis Screen: Does the patient meet any 2 criteria? No. Patient's initial sepsis screen is negative. Does the patient have a suspected source of infection? No. Patient's initial sepsis screen is negative. Risk Assessment: Do you want to hurt yourself or someone else? Patient reports no desire to harm self or others. Onset of symptoms was March 18, 2020. 17:23 Method Of Arrival: Ambulatory 1 17:23 Acuity: MOSES 3 ll1 Triage Assessment: 20:00 General: Appears in no apparent distress. comfortable, Behavior is calm, cooperative. mg2 GI: Reports nausea. 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 - Social history:: Smoking status: Patient denies any tobacco usage or history of. Patient/guardian denies using alcohol, street drugs, tobacco products. Screenin:30 Abuse screen: Denies threats or abuse. Denies injuries from another. Nutritional mg2 screening: No deficits noted. Tuberculosis screening: No symptoms or risk factors identified. 19:30 Fall Risk None identified. mg2 Assessment: 19:30 General: Appears in no apparent distress. comfortable, Behavior is calm, cooperative. mg2 Pain: Denies pain. Neuro: Level of Consciousness is awake, alert, obeys commands, Oriented to person, place, time, situation. Cardiovascular: Capillary refill < 3 seconds Patient's skin is warm and dry. Respiratory: Airway is patent Respiratory effort is even, unlabored, Respiratory pattern is regular, symmetrical. GI: Abdomen is non-distended, Reports nausea, vomiting. : No signs and/or symptoms were reported regarding the genitourinary system. EENT: No signs and/or symptoms were reported regarding the EENT system. Derm: Skin is intact, is healthy with good turgor, Skin is pink, warm \T\ dry. normal. Musculoskeletal: Circulation, motion, and sensation intact. Capillary refill < 3 seconds. Vital Signs: 17:23 BP 134 / 89; Pulse 90; Resp 17; Temp 98.0; Pulse Ox 99% ; Pain 0/10; ll1 20:00 BP 130 / 78; Pulse 80; Resp 18; Temp 98(O); Pulse Ox 100% ; mg2 ED Course: 17:07 Patient arrived in ED. mr 17:25 Triage completed. ll1 17:26 Arm band placed on Patient notified of wait time. ll1 19:23 Ramon Curiel PA is PHCP. cp 19:23 Samy Wang MD is Attending Physician. cp 19:30 Bart Quevedo RN is Primary Nurse. mg2 19:30 Patient has correct armband on for positive identification. mg2 19:30 No provider procedures requiring assistance completed. mg2 19:30 Patient did not have IV access during this emergency room visit. mg2 Administered Medications: No medications were administered Outcome: 20:03 Discharge ordered by MD. cp 20:28 Discharged to home ambulatory. mg2 20:28 Condition: stable 20:28 Discharge instructions given to patient, Instructed on discharge instructions, follow up and referral plans. medication usage, Demonstrated understanding of instructions, follow-up care, medications, Prescriptions given X 1. 20:29 Patient left the ED. mg2 Signatures: Juana Lorenzo mr Ramon Curiel PA PA cp Bart Quevedo RN RN mg2 Rickie, Lynsay, RN RN ll1
[2020-03-24 21:04] VITALS: BP 134/89; TEMP 98; O2SAT 99
== END 2020-03-24 20:29 | disposition home or self-care (01) ==
LOC: ER 17:02
DX: Z32.01 Encounter for pregnancy test, result positive (principal)
CPT/HCPCS: 81003; 81025; 99282

== ENCOUNTER 2021-07-16 13:12 | Emergency (ER) | payer OTHER ==
--- NOTE | 2021-07-16 13:44 | EDPHYS ---
Physician Documentation [facility] Name: Ayan Turner Age: 25 yrs Sex: Female : 1995 Arrival Date: 07/16/2021 Time: 13:18 Bed DIS1 Private MD: ED Physician Juan Guzman HPI: 07/16 13:46 This 25 yrs old Black Female presents to ER via Ambulatory with complaints of covid+, kb symptoms worsening. 13:46 The patient or guardian reports cough, that is intermittent, described as moderate, kb difficulty breathing, flu symptoms, low-grade fever, myalgias. Onset: The symptoms/episode began/occurred 6 day(s) ago. Severity of symptoms: At their worst the symptoms were moderate, in the emergency department the symptoms are unchanged. Modifying factors: The symptoms are alleviated by nothing, the symptoms are aggravated by nothing. Associated signs and symptoms: Pertinent positives: fever. The patient has not experienced similar symptoms in the past. The patient has not recently seen a physician. Pt reports fever, chills, cough, malaise, fatigue, shortness of breath and weakness for 6 days, tested positive for covid 4 days ago. Came in today because she is feeling worse. 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 - Social history:: Smoking status: Patient/guardian denies using tobacco, but has a distant history of tobacco abuse. ROS: 13:45 Cardiovascular: Negative for chest pain, palpitations, and edema. kb 13:45 Constitutional: Positive for body aches, chills, fatigue, fever, malaise. 13:45 Respiratory: Positive for cough, shortness of breath. 13:45 Neuro: Positive for weakness. 13:45 All other systems are negative. Exam: 13:46 Constitutional: This is a well developed, well nourished patient who is awake, alert, kb and in no acute distress. Head/Face: Normocephalic, atraumatic. ENT: Moist Mucous membranes Cardiovascular: Regular rate and rhythm with a normal S1 and S2. No gallops, murmurs, or rubs. No pulse deficits. Respiratory: Respirations even and unlabored. No increased work of breathing, no retractions or nasal flaring. Skin: Warm, dry with normal turgor. Normal color. MS/ Extremity: Pulses equal, no cyanosis. Neurovascular intact. Full, normal range of motion. Neuro: Awake and alert, GCS 15, oriented to person, place, time, and situation. Moves all extremities. Normal gait. Psych: Awake, alert, with orientation to person, place and time. Behavior, mood, and affect are within normal limits. Vital Signs: 13:22 BP 126 / 83; Pulse 119; Resp 18 S; Temp 97.5(TE); Pulse Ox 96% on R/A; Weight 90.72 kg jd3 (R); Height 5 ft. 3 in. (160.02 cm) (R); Pain 7/10; 13:46 BP 105 / 78; Pulse 112; Resp 18; Pulse Ox 96% on R/A; es2 13:22 Body Mass Index 35.43 (90.72 kg, 160.02 cm) jd3 MDM: 13:33 Patient medically screened. kb 13:45 Data reviewed: vital signs, nurses notes. Data interpreted: Pulse oximetry: on room air kb is 96 %. Interpretation: normal. Counseling: I had a detailed discussion with the patient and/or guardian regarding: the historical points, exam findings, and any diagnostic results supporting the discharge/admit diagnosis, the need for outpatient follow up, a family practitioner, to return to the emergency department if symptoms worsen or persist or if there are any questions or concerns that arise at home. 13:47 ED course: Pt nontoxic in appearance. No distress noted. O2 sat 96-99% on room air. kb Administered Medications: No medications were administered Disposition: 17:06 Co-signature as Attending Physician, Juan Guzman MD I agree with the assessment and kdr plan of care. Disposition Summary: 07/16/21 13:44 Discharge Ordered Location: Home kb Condition: Stable kb Diagnosis - Coronavirus infection, unspecified kb Followup: kb - With: Emergency Department - When: As needed - Reason: Worsening of condition Followup: kb - With: Private Physician - When: 2 - 3 days - Reason: Recheck today's complaints, Continuance of care, Re-evaluation by your physician Discharge Instructions: - Discharge Summary Sheet kb - COVID-19 kb - COVID-19 Frequently Asked Questions kb - 10 Things You Can Do to Manage Your COVID-19 Symptoms at Home - [facility] kb Forms: - Medication Reconciliation Form kb - Thank You Letter kb - Antibiotic Education kb - Prescription Opioid Use kb Signatures: Keisha Glass, Juna Fam MD MD [facility] Rick Love RN RN jd3
--- NOTE | 2021-07-16 13:44 | ER ---
Nurse's Notes [facility] Name: Ayan Turner Age: 25 yrs Sex: Female : 1995 Arrival Date: 07/16/2021 Time: 13:18 Bed DIS1 Private MD: Diagnosis: Coronavirus infection, unspecified Presentation: 07/16 13:20 Chief complaint: Patient states: "I started having symptoms Tuesday night and tested jd3 positive on Tuesday. fever, chills, diarrhea.". Coronavirus screen: chills, fever, Client presents with at least one sign or symptom that may indicate coronavirus-19. Standard/surgical mask placed on the client. Provider contacted for isolation considerations. Ebola Screen: Patient negative for fever greater than or equal to 101.5 degrees Fahrenheit, and additional compatible Ebola Virus Disease symptoms. Initial Sepsis Screen: Does the patient meet any 2 criteria? No. Patient's initial sepsis screen is negative. Does the patient have a suspected source of infection? No. Patient's initial sepsis screen is negative. Risk Assessment: Do you want to hurt yourself or someone else? Patient reports no desire to harm self or others. Onset of symptoms was July 11, 2021. 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 - Social history:: Smoking status: Patient/guardian denies using tobacco, but has a distant history of tobacco abuse. Screenin:47 Abuse screen: Denies threats or abuse. Denies injuries from another. Nutritional es2 screening: No deficits noted. Tuberculosis screening: No symptoms or risk factors identified. Fall Risk Gait- Normal/Bed Rest/Wheelchair (0 pts). Assessment: 13:44 Reassessment: Patient and/or family updated on plan of care and expected duration. Pain es2 level reassessed. Patient is alert, oriented x 3, equal unlabored respirations, skin warm/dry/pink. 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 General: Appears ill, well developed, well nourished, Behavior is appropriate for age. Pain: Denies pain. Neuro: Level of Consciousness is awake, alert, obeys commands, Oriented to person, place, time, situation, Appropriate for age Gait is steady, Speech is normal, Facial symmetry appears normal. Cardiovascular: Capillary refill < 3 seconds Patient's skin is warm and dry. Respiratory: Reports shortness of breath. GI: No signs and/or symptoms were reported involving the gastrointestinal system. : No signs and/or symptoms were reported regarding the genitourinary system. EENT: No signs and/or symptoms were reported regarding the EENT system. Derm: Skin temperature is warm. Musculoskeletal: Range of motion: intact in all extremities. Vital Signs: 13:22 BP 126 / 83; Pulse 119; Resp 18 S; Temp 97.5(TE); Pulse Ox 96% on R/A; Weight 90.72 kg jd3 (R); Height 5 ft. 3 in. (160.02 cm) (R); Pain 7/10; 13:46 BP 105 / 78; Pulse 112; Resp 18; Pulse Ox 96% on R/A; es2 13:22 Body Mass Index 35.43 (90.72 kg, 160.02 cm) jd3 ED Course: 13:18 Patient arrived in ED. as 13:21 Triage completed. jd3 13:24 Keisha Glass FNP-C is [facility]. kb 13:24 Juan Guzman MD is Attending Physician. kb 13:24 Arm band placed on. jd3 13:31 Avani Altamirano, BO is Primary Nurse. es2 13:47 Patient has correct armband on for positive identification. Bed in low position. Call es2 light in reach. 13:47 No provider procedures requiring assistance completed. Patient did not have IV access es2 during this emergency room visit. Administered Medications: No medications were administered Outcome: 13:44 Discharge ordered by . kb 13:48 Condition: stable es2 13:48 Discharge instructions given to 13:55 Discharged to home ambulatory. es2 13:55 Discharge instructions given to patient. 13:55 Patient left the ED. es2 Signatures: Keisha Glass FNP-C FNP-Estefani Tobias Jonathon, RN RN jd3 Avani Altamirano RN RN es2
[2021-07-16 14:18] VITALS: TEMP 97.5; O2SAT 96
[2021-07-16 14:19] VITALS: BP 105/78
== END 2021-07-16 13:55 | disposition home or self-care (01) ==
LOC: ER 13:12
DX: U07.1 COVID-19 (principal)
CPT/HCPCS: 99281